=== PATIENT | female | born 1975 | race American Indian/Alaskan Native ===

== ENCOUNTER 2016-05-17 16:01 | Emergency (ER) | payer OTHER, BC ==
[2016-05-17] MEDS ORDERED: FLEXERIL PO ONE (20:51)
[2016-05-17] MEDS ORDERED: MOTRIN PO ONE (20:51)
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
[2016-05-17 22:31] VITALS: BP 138/90
== END 2016-05-17 22:32 | disposition home or self-care (01) ==
LOC: ED 16:01
DX: M79.1 Myalgia (principal); V49.9XXA Car occupant (driver) (passenger) injured in unspecified traffic accident, initial encounter; W22.11XA Striking against or struck by driver side automobile airbag, initial encounter; Y93.89 Activity, other specified; Y99.9 Unspecified external cause status; Y92.410 Unspecified street and highway as the place of occurrence of the external cause
CPT/HCPCS: 99283